=== PATIENT | male | born 1965 | race Caucasian/White ===

== ENCOUNTER 2017-11-28 15:15 | Emergency (ER) | payer BC ==
[~2017-11-28] VITALS: Ht 182.9 cm; Wt 96.2 kg
[2017-11-28 15:25] VITALS: BP 162/105
[2017-11-28] MEDS ORDERED: LIDOCAINE 1% (LOCAL ANESTH.) PF 5ml SDV ONE (17:07)
[2017-11-28] MEDS ORDERED: LIDOCAINE 1% HCL (LOCAL ANESTH.) INJ 20ML MDV IJ ONE (17:15)
== END 2017-11-28 17:40 | disposition home or self-care (01) ==
LOC: ER 15:15
DX: L03.012 Cellulitis of left finger (principal)
CPT/HCPCS: 10060; 73140

== ENCOUNTER 2019-02-03 11:54 | Emergency (ER) | payer BC ==
[~2019-02-03] VITALS: Ht 182.9 cm; Wt 90.7 kg
[2019-02-03 13:04] LABS: Basophils # (auto) 0 uL; Basophils % (auto) 0.6 % (0.0-2.0); Eosinophils # (auto) 0 uL; Eosinophils % (auto) 0.6 % (0.0-7.0); Hematocrit 41.8 % (41.0-53.0); Hemoglobin 14.2 g/dL (13.5-17.5); Lymphocytes # (auto) 1.3 uL; Lymphocytes % (auto) 27.9 % (10.0-50.0); Mean Corpuscular Hgb Conc. 33.9 g/dL (32.0-36.0); Mean Corpuscular Volume 94.6 fL (80.0-100.0); Monocytes # (auto) 0.4 uL; Monocytes % (auto) 7.8 % (0.0-12.0); Neutrophils % (auto) 63.1 % (37.0-80.0); Platelet Count (auto) 163 10^3/uL (140-450); Red Blood Cells 4.42 10^6/uL (4.5-5.90); Red Cell Distribution Width 13.3 % (11.8-14.3); White Blood Cell 4.7 10^3/uL (4.4-10.8)
[2019-02-03 13:20] LABS: Albumin 3.6 g/dL (3.4-5.0); Calcium 8.4 mg/dL (8.5-10.1)
[2019-02-03 13:21] LABS: Urine WBC None Seen /hpf (0 - 3)
[2019-02-03 13:23] LABS: BUN/Creatinine Ratio 14.1; Bilirubin, Total 0.5 mg/dL (0.2-1.0); Total Protein 6.8 g/dL (6.4-8.2)
[2019-02-03 13:34] LABS: Urine Bacteria NONE SEEN /hpf (None Seen); Urine Blood Negative /uL (Negative); Urine Specific Gravity 1.003 (1.001-1.035)
[2019-02-03 15:02] VITALS: BP 129/93
== END 2019-02-03 16:05 | disposition home or self-care (01) ==
LOC: ER 11:58
DX: K40.90 Unilateral inguinal hernia, without obstruction or gangrene, not specified as recurrent (principal); K42.9 Umbilical hernia without obstruction or gangrene; E78.00 Pure hypercholesterolemia, unspecified
CPT/HCPCS: 36415; 74176; 80053; 81001; 85025

== ENCOUNTER → 2019-07-14 | Outpatient (CLI) | payer BC ==
[2019-07-14 10:27] LABS: Alcohol, Urine < 3.0 mg/dL (0-5); Amphetamine Screen, Urine NEGATIVE (NEGATIVE); Barbiturate Scree,Urine NEGATIVE (NEGATIVE); Benzodiazephine Screen, Urine NEGATIVE (NEGATIVE); Cannabinoid Screen, Urine NEGATIVE (NEGATIVE); Cocaine Screen, Urine NEGATIVE (NEGATIVE); Opiate Scree,Urine NEGATIVE (NEGATIVE); Phencyclidine Screen, Urine NEGATIVE (NEGATIVE)
== END | disposition home or self-care (01) ==
LOC: LAB 09:45
PROVIDERS: ATTEND Psychiatry & Neurology Neurology
DX: F11.220 Opioid dependence with intoxication, uncomplicated (principal)
CPT/HCPCS: 80307